=== PATIENT | female | born 1975 | race Caucasian/White ===

== ENCOUNTER 2018-10-11 10:08 | Emergency (ER) | payer OTHER ==
--- NOTE | 2018-10-11 10:49 | ER Document Report ---
ED Medical Screen (RME) - General Chief Complaint: Abdominal Pain Stated Complaint: ABDOMINAL PAIN Time Seen by Provider: 10/11/18 10:34 Mode of Arrival: Ambulatory Information source: Patient Notes: Patient presents emergency department with complaints of severe abdominal pain. Patient reports right upper quad epigastric abdominal pain started yesterday at approximately 3:00. She reports she has not ate or drink anything barely. Patient also buttock. Denies fever vomiting diarrhea. Reports she has a history of gastritis and usually has vomiting with gastritis but she has not had vomiting. She also reports her mom at 45 years old from a heart attack. She is worried she is having a heart attack she denies chest pain. She denies jaw arm pain. I have greeted and performed a rapid initial assessment of this patient. A comprehensive ED assessment and evaluation of the patient, analysis of test results and completion of the medical decision making process will be conducted by additional ED providers. Dictation of this chart was performed using voice recognition software; therefore, there may be some unintended grammatical errors. TRAVEL OUTSIDE OF THE [place] IN LAST 30 DAYS: No - Related Data Allergies/Adverse Reactions: latex Allergy (Verified 10/11/18 10:34) neomycin Allergy (Verified 10/11/18 10:34) Past Medical History - Social History Frequency of alcohol use: Social Endocrine Medical History: Reports: Hx Diabetes Mellitus Type 2 Renal/ Medical History: Denies: Hx Peritoneal Dialysis Skin Medical History: Reports Hx Psoriasis Past Surgical History: Reports: Hx Abdominal Surgery - csection, Hx Orthopedic Surgery - R thumb reattached., Hx Tonsillectomy - Immunizations Immunizations up to date: Yes Hx Diphtheria, Pertussis, Tetanus Vaccination: Yes Physical Exam - Vital signs Vitals: Temp Pulse Resp BP Pulse Ox 98.1 F 104 H 18 114/74 95 10/11/18 10:28 10/11/18 10:28 10/11/18 10:28 10/11/18 10:28 10/11/18 10:28 Course - Vital Signs Vital signs: Temp Pulse Resp BP Pulse Ox 98.1 F 104 H 18 114/74 95 10/11/18 10:28 10/11/18 10:28 10/11/18 10:28 10/11/18 10:28 10/11/18 10:28
[2018-10-11] MEDS ORDERED: KETOROLAC TROMETHAMINE 60 MG/2 ML SDV IM ONE (10:58)
[2018-10-11 11:41] LABS: APPEARANCE,URINE CLEAR; BILIRUBIN,URINE NEGATIVE (NEGATIVE); COLOR,URINE YELLOW; GLUCOSE, URINE >=500 mg/dL (NEGATIVE); KETONES,URINE TRACE mg/dL (NEGATIVE); LEUKOCYTE ESTERASE,URINE NEGATIVE (NEGATIVE); NITRITE,URINE NEGATIVE (NEGATIVE); PROTEIN,URINE NEGATIVE (NEGATIVE); URINE SPECIFIC GRAVITY 1.044; UROBILINOGEN,URINE NEGATIVE mg/dL (<2.0)
[2018-10-11 12:02] LABS: ABSOLUTE LYMPHOCYTES (AUTO) 1.1 10^3/uL (0.5-4.7); ABSOLUTE MONOCYTES (AUTO) 0.5 10^3/uL (0.1-1.4); ABSOLUTE NEUT (AUTO) 3.5 10^3/uL (1.7-8.2); BASOPHILS % (AUTO) 0.3 % (0-2); EOSINOPHILS % (AUTO) 0.6 % (0-6); HEMATOCRIT 43.5 % (36.0-47.0); LYMPHOCYTES % (AUTO) 21.1 % (13-45); MEAN CORPUSCULAR HEMOGLOBIN 29.7 pg (27.0-33.4); MEAN CORPUSCULAR HGB CONC 34.4 g/dL (32.0-36.0); MEAN CORPUSCULAR VOLUME 86 fl (80-97); MONOCYTES % (AUTO) 9.1 % (3-13); PLATELET COUNT 221 10^3/uL (150-450); RED BLOOD COUNT 5.05 10^6/uL (3.72-5.28); RED CELL DISTRIBUTION WIDTH 13.1 % (11.5-14.0); SEGMENTED NEUTROPHILS % (AUTO) 68.9 % (42-78); TOTAL CELLS COUNTED % (AUTO) 100 %; WHITE BLOOD COUNT 5.1 10^3/uL (4.0-10.5)
[2018-10-11 12:22] LABS: ALANINE AMINOTRANSFERASE 45 U/L (9-52); ALBUMIN 4.2 g/dL (3.5-5.0); ALKALINE PHOSPHATASE 95 U/L (38-126); ANION GAP 14 (5-19); ASPARTATE AMINO TRANSFERASE 33 U/L (14-36); BILIRUBIN,DIRECT 0.2 mg/dL (0.0-0.4); BILIRUBIN,TOTAL 0.8 mg/dL (0.2-1.3); BLOOD UREA NITROGEN 12 mg/dL (7-20); CARBON DIOXIDE 27 mmol/L (22-30); CHLORIDE 97 mmol/L (98-107); GLUCOSE 215 mg/dL (75-110); LIPASE 96.1 U/L (23-300); POTASSIUM 3.9 mmol/L (3.6-5.0); SODIUM 138.1 mmol/L (137-145); TOTAL PROTEIN 7.4 g/dL (6.3-8.2)
--- NOTE | 2018-10-11 12:52 | RADIOLOGY REPORT (SQ) ---
EXAM DESCRIPTION: U/S ABDOMEN LIMITED W/O DOP COMPLETED DATE/TIME: 10/11/2018 12:40 pm REASON FOR STUDY: ruq abd pain COMPARISON: 05/24/2015 TECHNIQUE: Dynamic and static grayscale images acquired of the abdomen and recorded on PACS. Additio nal selected color Doppler and spectral images recorded. LIMITATIONS: None. FINDINGS: PANCREAS: No masses. Visualized pancreatic duct normal caliber. LIVER: Increased heterogeneous echotexture. No focal lesion. Hepatomegaly. LIVER VASCULATURE: Normal directional flow of the main portal vein and hepatic veins. GALLBLADDER: No stones. Normal wall thickness. No pericholecystic fluid. ULTRASOUND-DETECTED WELSH'S SIGN: Negative. INTRAHEPATIC DUCTS AND COMMON DUCT: CBD and intrahepatic ducts normal caliber. No filling defects. INFERIOR VENA CAVA: Normal flow. AORTA: No aneurysm. RIGHT KIDNEY: Normal size. Normal echogenicity. No solid or suspicious masses. No hydronephrosis. No calcifications. PERITONEAL AND RIGHT PLEURAL SPACE: No ascites or effusions. OTHER: No other significant findings. IMPRESSION: Hepatic steatosis. Otherwise, unremarkable right upper quadrant ultrasound. TECHNICAL DOCUMENTATION: JOB ID: [id number] [employer]- All Rights Reserved Reading location - IP/workstation name: [email or web address]
--- NOTE | 2018-10-11 14:05 | ER Document Report ---
Addendum entered and electronically signed by TYSON BAEZ NP 10/11/18 19:54: Discharge - Discharge Clinical Impression: Hepatic steatosis Abdominal pain Qualifiers: Abdominal location: right upper quadrant Qualified Code(s): R10.11 - Right upper quadrant pain Condition: Stable Disposition: HOME, SELF-CARE Instructions: Abdominal Pain ([facility]), Toradol Injection ([facility]) Additional Instructions: *You have been evaluated for abdominal pain *Take ibuprofen as indicated *push fluids *Follow up with a primary care provider within 5 days *Return to ED for worsening condition, changes, needs *Return to ED if not better in 24 hours Prescriptions: Ketorolac Tromethamine [Toradol 10 mg Tablet] 10 mg PO Q6HP PRN #10 tablet PRN Reason: Forms: Return to Work Referrals: DREA BARROSO FNP [Primary Care Provider] - Follow up as needed Course - Re-evaluation Re-evalutation: 10/11/18 19:53 Patient called requesting something for pain. Toradol prescription wrote. Patient was again instructed to follow-up with primary care provider tomorrow. - Vital Signs Vital signs: Temp Pulse Resp BP Pulse Ox 98.2 F 78 18 98/63 L 97 10/11/18 14:08 10/11/18 14:08 10/11/18 14:08 10/11/18 14:08 10/11/18 14:08 - Laboratory Result Diagrams: 10/11/18 11:48 10/11/18 11:48 Laboratory results interpreted by me: 10/11/18 10/11/18 10/11/18 10:50 11:47 11:48 Chloride 97 L Creatinine 0.48 L Glucose 215 H POC Glucose 220 H Urine Glucose (UA) >=500 H Urine Ketones TRACE H Urine Ascorbic Acid 20 H Original Note: ED General - General Chief Complaint: Abdominal Pain Stated Complaint: ABDOMINAL PAIN Time Seen by Provider: 10/11/18 10:34 Mode of Arrival: Ambulatory Information source: Patient Notes: Patient presents emergency department with complaints of severe abdominal pain. Patient reports right upper quad epigastric abdominal pain started yesterday at approximately 3:00. She reports she has not ate or drink anything barely. Patient also buttock. Denies fever vomiting diarrhea. Reports she has a history of gastritis and usually has vomiting with gastritis but she has not had vomiting. She also reports her mom at 45 years old from a heart attack. She is worried she is having a heart attack she denies chest pain. She denies jaw arm pain. TRAVEL OUTSIDE OF THE [place] IN LAST 30 DAYS: No - HPI Onset: Yesterday Onset/Duration: Persistent Quality of pain: Achy, Other - bloated Severity: Severe Pain Level: 5 - Related Data Allergies/Adverse Reactions: latex Allergy (Verified 10/11/18 10:34) neomycin Allergy (Verified 10/11/18 10:34) Past Medical History - General Information source: Patient - Social History Smoking Status: Former Smoker Cigarette use (# per day): No Frequency of alcohol use: Social Family History: Reviewed & Not Pertinent Patient has suicidal ideation: No Patient has homicidal ideation: No Endocrine Medical History: Reports: Hx Diabetes Mellitus Type 2 Renal/ Medical History: Denies: Hx Peritoneal Dialysis GI Medical History: Reports: Hx Gastritis Skin Medical History: Reports Hx Psoriasis Past Surgical History: Reports: Hx Abdominal Surgery - csection, Hx Orthopedic Surgery - R thumb reattached., Hx Tonsillectomy - Immunizations Immunizations up to date: Yes Hx Diphtheria, Pertussis, Tetanus Vaccination: Yes Review of Systems - Review of Systems Notes: Review HPI for review of systems., All other systems negative Physical Exam - Vital signs Vitals: Temp Pulse Resp BP Pulse Ox 98.1 F 104 H 18 114/74 95 10/11/18 10:28 10/11/18 10:28 10/11/18 10:28 10/11/18 10:28 10/11/18 10:28 - Notes Notes: PHYSICAL EXAMINATION: GENERAL: Nontoxic looking, in no acute distress HEAD: Atraumatic, normocephalic. EYES: Pupils equal round, extraocular movements intact, sclera anicteric, conjunctiva are normal. ENT: nares patent, Moist mucous membranes. NECK: Normal range of motion, supple without lymphadenopathy LUNGS: CTAB and equal. No wheezes rales or rhonchi. HEART: Regular rate and rhythm without murmurs ABDOMEN: Soft, RUQ, epigastric tenderness. No guarding, no rebound EXTREMITIES: Normal range of motion, no pitting edema. NEUROLOGICAL: Cranial nerves grossly intact. Normal sensory/motor exams. PSYCH: Normal mood, normal affect. SKIN: Warm, Dry, normal turgor, no rashes or lesions noted Course - Re-evaluation Re-evalutation: 10/11/18 14:13 Labs unremarkable urine with trace of ketones. Abdominal ultrasound does not show gallstones shows hepatic steatosis. Patient reports that she has been told that she has a fatty liver. Patient remembers being sent to a specialist for this. Patient is drinking p.o. fluids no vomiting, reports that the Toradol helped her abdominal pain. Patient was instructed to take her diabetic medications and on the importance of follow-up with her primary care provider return here for worsening symptoms or concerns she verbalized understanding to all instructions Dictation of this chart was performed using voice recognition software; therefore, there may be some unintended grammatical errors. 10/11/18 14:15 - Vital Signs Vital signs: Temp Pulse Resp BP Pulse Ox 98.1 F 104 H 18 114/74 95 10/11/18 10:28 10/11/18 10:28 10/11/18 10:28 10/11/18 10:28 10/11/18 10:28 - Laboratory Result Diagrams: 10/11/18 11:48 10/11/18 11:48 Laboratory results interpreted by me: 10/11/18 10/11/18 10/11/18 10:50 11:47 11:48 Chloride 97 L Creatinine 0.48 L Glucose 215 H POC Glucose 220 H Urine Glucose (UA) >=500 H Urine Ketones TRACE H Urine Ascorbic Acid 20 H - Diagnostic Test Radiology reviewed: Image reviewed, Reports reviewed - hepatic steatosis Discharge - Discharge Clinical Impression: Hepatic steatosis Abdominal pain Qualifiers: Abdominal location: right upper quadrant Qualified Code(s): R10.11 - Right upper quadrant pain Condition: Stable Disposition: HOME, SELF-CARE Instructions: Abdominal Pain ([facility]), Toradol Injection ([facility]) Additional Instructions: *You have been evaluated for abdominal pain *Take ibuprofen as indicated *push fluids *Follow up with a primary care provider within 5 days *Return to ED for worsening condition, changes, needs *Return to ED if not better in 24 hours Forms: Return to Work
[2018-10-11 14:11] VITALS: BP 98/63
--- NOTE | 2018-10-11 20:05 | EKG REPORT ---
SEVERITY:- NORMAL ECG - SINUS RHYTHM : Confirmed by: Barbara Bowen MD 11-Oct-2018 20:04:41
== END 2018-10-11 14:11 | disposition home or self-care (01) ==
LOC: ER 10:08
DX: R10.11 Right upper quadrant pain (principal); R10.13 Epigastric pain; K76.0 Fatty (change of) liver, not elsewhere classified; E11.9 Type 2 diabetes mellitus without complications; Z87.19 Personal history of other diseases of the digestive system; Z91.040 Latex allergy status; Z88.1 Allergy status to other antibiotic agents
CPT/HCPCS: 93005; 99284; 96372; 36415; 82962; 83690; 85025; 81025; 80053; 81001; 76705; 93010; J1885